=== PATIENT | female | born 1985 | race Caucasian/White ===

== ENCOUNTER 2018-09-12 07:02 | Inpatient (IN) | payer MEDICAID, OTHER ==
[2018-09-12] MEDS ORDERED: Sodium Chloride 0.9% 1,000 ML IV ONE (07:34)
[2018-09-12 07:57] LABS: HEMATOCRIT 42.6 % (41.0-60); HEMOGLOBIN 14.1 gm/dL (12-16); MEAN CELL VOLUME 88.3 fl (81-100); MEAN CORPUSCULAR HEMOGLOBIN 29.2 pg (27.0-31.0); MEAN CORPUSCULAR HGB CONC 33.1 pg (28.0-36.0); MEAN PLATELET VOLUME 7.6 fl; PLATELET COUNT 495 Th/cmm (150-400); RED BLOOD COUNT 4.82 Mil/cmm (3.80-5.10); RED CELL DISTRIBUTION WIDTH 12.4 % (11.5-20.0)
[2018-09-12 08:03] LABS: WHITE BLOOD COUNT 18.1 Th/cmm (4.8-10.8)
[2018-09-12 08:15] LABS: BAND NEUTROPHILE 3 % (0-10); BASOPHIL 0 % (0-3); EOSINOPHIL 0 % (0-5); LYMPHOCYTE 15 % (20-50); MONOCYTE 1 % (2-10); NEUTROPHILS 81 % (40-80)
[2018-09-12 08:25] LABS: ALB/GLOB RATIO 1.5 (1.0-1.8); ALKALINE PHOSPHATASE 84 U/L (34-104); AMYLASE SERUM 19 U/L (29-103); ANION GAP 14.7 (7.0-16.0); BUN - UREA NITROGEN 14 mg/dL (7-25); CALCIUM SERUM 9.3 mg/dL (8.6-10.3); CARBON DIOXIDE 21.6 mEq/L (21.0-31.0); CHLORIDE 104 mEq/L (98-107); CREATININE - SERUM 0.6 mg/dL (0.6-1.2); GFR AFRICAN-AMERICAN > 60.0 ml/min (>90); GFR NON AFRICAN-AMERICAN > 60.0 ml/min; GLUCOSE 151 mg/dL (70-105); LIPASE 9 U/L (11-82); POTASSIUM SERUM 3.3 mEq/L (3.5-5.1); SGOT 13 U/L (13-39); SGPT/ALT 14 U/L (7-52); SODIUM SERUM 137 mEq/L (136-145); TOTAL PROTEIN,SERUM 6.7 gm/dL (6.0-8.3)
[2018-09-12] MEDS ORDERED: IOHEXOL 300mgI/mL 100 ML VIAL IVP ONE (08:26)
[2018-09-12] MEDS ORDERED: Potassium Chloride 20 mEq ER Tab PO ONE ×2 (08:41→09:18)
--- NOTE | 2018-09-12 08:43 | ED Physician Chart ---
ED Chief Complaint/HPI - Patient Information Date Seen:: 09/12/18 Time Seen:: 07:20 Chief Complaint:: Abdominal Pain History of Present Illness:: onset x 12 hours of intermittent, diffuse, crampy Abdominal Pain, Flank Pain, N/ V/D, fever, and chills; pt denies trauma, H/As, S/T, neck pain, C/P, cough, SOB , A/C, or urinary s/s Allergies:: Allergies Allergy/AdvReac Type Severity Reaction Status Date / Time No Known Allergies Allergy Verified 09/12/18 07:21 Vitals:: Vital Signs - 8 hr 09/12/18 07:21 Temp 97.3 F HR 77 RR 15 BP 115/76 O2 Sat % 100 Historian:: Patient Review:: Nurse's Note Reviewed, Old Chart Reviewed ED Review of Systems - Review of Systems General/Constitutional: Fever, Chills, No weight loss, No weakness, No diaphoresis, No edema, No loss of appetite Skin: No skin lesions, No rash, No bruising Head: No headache, No light-headedness Eyes: No loss of vision, No pain, No diplopia ENT: No earache, No nasal drainage, No sore throat, No tinnitus Neck: No neck pain, No swelling, No thyromegaly, No stiffness, No mass noted Cardio Vascular: No chest pain, No palpitations, No PND, No orthopnea, No edema Pulmonary: No SOB, No cough, No sputum, No wheezing GI: Nausea, Vomiting, Diarrhea, Pain, No melena, No hematochezia, No constipation, No hematemesis G/U: No dysuria, No frequency, No hematuria, No nacturia [employer]: No vaginal discharge, No abnormal vaginal bleed, No contraction Musculoskeletal: No bone or joint pain, No back pain, No muscle pain Endocrine: No polyuria, No polydipsia Psychiatric: No prior psych history, No depression, No anxiety, No suicidal ideation, No homicidal ideation, No auditory hallucination, No visual hallucination Hematopoietic: No bruising, No lymphadenopathy Allergic/Immuno: No urticaria, No angioedema Neurological: No syncope, No focal symptoms, No weakness, No paresthesia, No headache, No seizure, No dizziness, No confusion, No vertigo ED Past Medical History - Past Medical History Obtainable: Yes Past Medical History: No significant medical hx Family History: None Social History: Smoker, Alcohol, Illicit Drug Use, Single Surgical History: other (Cyst Removal Surgery) Psychiatricy History: None Medication: Reviewed Family Medical History - Family Member Mother History Unknown: Yes ED Physical Exam - Physical Examination General/Constitutional: Awake, Well-developed, well-nourished, Alert, No distress, GCS 15, Non-toxic appearing, Ambulatory Head: Atraumatic Eyes: Lids, conjuctiva normal, PERRL, EOMI Skin: Nl inspection, No rash, No skin lesions, No ecchymosis, Well hydrated, No lymphadenopathy ENMT: External ears, nose nl, TM canals nl, Nasal exam nl, Lips, teeth, gums nl , Oropharynx nl, Tonsils nl Neck: Nontender, Full ROM w/o pain, No JVD, No nuchal rigidity, No bruit, No mass, No stridor Respiratory: Nl effort/Exclusion, Clear to Auscultation, No Wheeze/Rhonchi/Rales Cardio Vascular: RRR, No murmur, gallop, rubs, NL S1 S2, Carotid/Femoral/Distal pulses equal bilaterally GI: No tenderness/rebounding/guarding, No organomegaly, No hernia, Normal BS's, Nondistended, No mass/bruits, No McBurney tenderness, Rectum exam nl : No CVA tenderness Extremities: No tenderness or effusion, Full ROM, normal strength in all extremities, No edema, Normal digits & nails Neuro/Psych: Alert/oriented, DTR's symmetric, Normal sensory exam, Normal motor strength, Judgement/insight normal, Mood normal, Normal gait, No focal deficits Misc: Normal back, No paraspinal tenderness ED Labs/Radiology/EKG Results - Lab Results Results: Laboratory Tests 09/12/18 09/12/18 09/12/18 07:40 07:40 07:40 WBC 18.1 H RBC 4.82 Hgb 14.1 Hct 42.6 MCV 88.3 MCH 29.2 MCHC Differential 33.1 RDW 12.4 Plt Count 495 H MPV 7.6 Add Manual Diff YES Band Neutrophils % 3 Neutrophils (Manual) 81 H Lymphocytes 15 L Monocytes 1 L Eosinophils 0 Basophils 0 Sodium 137 Potassium 3.3 L Chloride 104 Carbon Dioxide 21.6 Anion Gap 14.7 BUN 14 Creatinine 0.6 Est GFR ( Amer) > 60.0 Est GFR (Non-Af Amer) > 60.0 BUN/Creatinine Ratio 23.3 Glucose 151 H Calcium 9.3 Total Bilirubin 1.0 AST 13 ALT 14 Alkaline Phosphatase 84 Troponin I < 0.01 L Total Protein 6.7 Albumin 4.0 Globulin 2.7 Albumin/Globulin Ratio 1.5 Amylase 19 L Lipase 9 L Serum , Qual 09/12/18 07:40 WBC RBC Hgb Hct MCV MCH MCHC Differential RDW Plt Count MPV Add Manual Diff Band Neutrophils % Neutrophils (Manual) Lymphocytes Monocytes Eosinophils Basophils Sodium Potassium Chloride Carbon Dioxide Anion Gap BUN Creatinine Est GFR ( Amer) Est GFR (Non-Af Amer) BUN/Creatinine Ratio Glucose Calcium Total Bilirubin AST ALT Alkaline Phosphatase Troponin I Total Protein Albumin Globulin Albumin/Globulin Ratio Amylase Lipase Serum , Qual NEGATIVE Comments:: Reviewed - Radiology Results Comments:: + Right Hydronephrosis; Right Hydroureter; Right UVJ 2mm Stone; + Enteritis; Follicular Cystic Changes - EKG Interpretations EKG Time:: 07:50 Rate & Rhythm: 56; SB Comments:: non-specific st-t changes ED Septic Shock - . Is Septic Shock (SBP<90, OR Lactate>4 mmol\L) present?: No - <6hrs of presentation: Vital Signs: Vital Signs - 8 hr 09/12/18 07:21 Temp 97.3 F HR 77 RR 15 BP 115/76 O2 Sat % 100 ED Reassessment (Disposition) - Reassessment Reassessment Condition:: Improved - Diagnosis Diagnosis:: Abdominal Pain; Flank Pain; Hypokalemia; Leukocytosis; UTI; Hematuria; Substance Abuse; N/V/D; AGE: Sepsis; Pyelonephritis; Bradycardia; Ureterolithiasis; Nephrolithiasis; Hydronephrosis; Hydroureter; Right UVJ Calculus - Aftercare/Follow up Instructions Aftercare/Follow-Up Instructions:: Counseled pt regarding lab results/diagnosis & need follow up, Counseled pt & family regarding lab results/diagnosis & need follow up - Patient Disposition Discharge/Transfer:: Acute Care w/in this hosp Accepting Physician:: Dr. Mckay Time Called:: 914 Time Responded:: 09:15 Admitted to:: Telemetry Spoke to:: Dr. Mckay Admitting Medical Physician:: Dr. Mckay Condition at Disposition:: Stable, Improved
[2018-09-12 09:04] LABS: URINE SOURCE RANDOM
[2018-09-12 09:11] LABS: URINE BILIRUBIN NEGATIVE (NEGATIVE); URINE BLOOD MODERATE (NEGATIVE); URINE GLUCOSE (UA) NEGATIVE (NEGATIVE); URINE KETONE 15 mg/dL (NEGATIVE); URINE LEUKOCYTE ESTERASE NEGATIVE (NEGATIVE); URINE MICROSCOPIC INDICATED? YES; URINE NITRATE NEGATIVE (NEGATIVE); URINE PH 6.5 (4.6 - 8.0); URINE PROTEIN TRACE mg/dL (NEGATIVE)
[2018-09-12 09:33] LABS: URINE CLARITY SLIGHTLY HAZY (CLEAR); URINE COLOR YELLOW
[2018-09-12 09:37] LABS: AMPHETAMINE URINE POSITIVE (NEGATIVE); BARBITURATES URINE NEGATIVE (NEGATIVE); BENZODIAZEPINES QUAL URINE NEGATIVE (NEGATIVE); CANNABINOID THC NEGATIVE (NEGATIVE); COCAINE METABOLITE QUAL URINE NEGATIVE (NEGATIVE); METHADONE URINE NEGATIVE (NEGATIVE); METHAMPHETAMINES QUAL URINE POSITIVE (NEGATIVE); OPIATES (MORPHINE) QUAL. URINE NEGATIVE (NEGATIVE); PHENCYCLIDINE (PCP) URINE NEGATIVE (NEGATIVE); TRICYCLICS (TCA) QUAL. URINE NEGATIVE (NEGATIVE)
--- NOTE | 2018-09-12 09:48 | Diagnostic Imaging Report ---
CT abdomen and pelvis with intravenous contrast Indication: Abdominal pain, rule out appendicitis Comparison: None, Technique: Axial images were obtained from the lung bases to the bilateral proximal femurs with IV contrast. Coronal reconstructions were made. total DLP: 440, CTDI9.0 FINDINGS: The lung bases demonstrate hypoventilatory atelectatic changes. No evidence of focal hepatic, splenic, or pancreatic lesions. No focal adrenal lesions. Subcentimeter low-density lesion of the left kidney is noted to small too characterize. There is moderate right hydronephrosis and right hydroureter. Assessment for stones is limited due to contrast administration, however, there is likely a 2 mm stone of the right UVJ. Bilateral adnexal fullness is noted with cystic changes. There is mild heterogeneous enhancement of the uterus. No evidence of acute appendicitis. Moderate fluid distended loops of small bowel the left hemiabdomen is noted. Moderate stool is noted. No free air or free fluid. The osseous structures demonstrate no acute abnormalities. IMPRESSION: No evidence of acute appendicitis Moderate right hydronephrosis and right hydroureter. Assessment for stones is limited as IV contrast was administered however, there is likely a 2 mm stone at the right UVJ. Please correlate with UA findings. Moderate fluid distended loops of small bowel along left hemiabdomen, nonspecific, however enteritis cannot be excluded. Bilateral adnexal fullness, right greater than left, with follicular cystic changes. Recommend short-term follow-up with ultrasound.
[2018-09-12] MEDS ORDERED: cefTRIAXone 1 GM in Sodium Chloride 0.9% 50 ML IV ONE (09:50)
[2018-09-12 09:52] LABS: URINE BACTERIA FEW /hpf (NONE SEEN); URINE EPITHELIAL CELLS MANY /lpf (FEW); URINE WBC 0-2 /hpf (0-5)
[2018-09-12] MEDS ORDERED: Sodium Chloride 0.9% 250 ML IV ONE (14:40)
[2018-09-12] MEDS ORDERED: Sodium Chloride 0.9% 1,000 ML IV SCH ×2 (16:45→17:00)
[2018-09-12 18:25] VITALS: BP 93/47
[2018-09-12] MEDS ORDERED: Influenza Vaccine (5 yr & older) 0.5 ml Syr IM ONE (18:27)
[2018-09-12] MEDS ORDERED: Pneumococcal Vaccine 0.5 mL Vial IM ONE (18:27)
[2018-09-12] MEDS ORDERED: Piperacillin Sodium/Tazobact 3.375 gm Vial IV ONE (23:14)
[2018-09-13] MEDS ORDERED: Piperacillin Sodium/Tazobact 3.375 gm Vial IV ONE (04:29)
[2018-09-13 07:12] LABS: % BASOPHILS 0.3 % (0.0-2.0); % EOSINOPHILS 1.2 % (0.0-5.0); % LYMPHOCYTES 44.2 % (20.0-50.0); % NEUTROPHILS 49.3 % (40.0-80.0); EOSINOPHILE ABSOLUTE 0.1 Th/cmm (0.1-0.4); HEMOGLOBIN 11.8 gm/dL (12-16); LYMPHOCYTE ABSOLUTE 3.8 Th/cmm (1.5-3.0); MEAN CELL VOLUME 87.4 fl (81-100); MEAN CORPUSCULAR HEMOGLOBIN 29.6 pg (27.0-31.0); MEAN CORPUSCULAR HGB CONC 33.9 pg (28.0-36.0); MEAN PLATELET VOLUME 7.6 fl; MONOCYTE ABSOLUTE 0.4 Th/cmm (0.3-1.0); NEUTROPHILE ABSOLUTE 4.2 Th/cmm (1.8-8.0); PLATELET COUNT 403 Th/cmm (150-400); RED BLOOD COUNT 3.99 Mil/cmm (3.80-5.10); RED CELL DISTRIBUTION WIDTH 12.5 % (11.5-20.0)
[2018-09-13 07:13] LABS: INR 1.02 (0.5-1.4); PROTHROMBIN TIME (TEST) 10.6 SECONDS (9.5-11.5)
[2018-09-13 07:14] LABS: WHITE BLOOD COUNT 8.5 Th/cmm (4.8-10.8)
[2018-09-13 07:15] LABS: HEMATOCRIT 34.9 % (41.0-60)
[2018-09-13 07:21] LABS: ALB/GLOB RATIO 1.4 (1.0-1.8); ALKALINE PHOSPHATASE 62 U/L (34-104); ANION GAP 10.1 (7.0-16.0); BILIRUBIN,TOTAL 0.9 mg/dL (0.3-1.0); BUN - UREA NITROGEN 9 mg/dL (7-25); CALCIUM SERUM 7.9 mg/dL (8.6-10.3); CARBON DIOXIDE 22.4 mEq/L (21.0-31.0); CHLORIDE 111 mEq/L (98-107); CREATININE - SERUM 0.6 mg/dL (0.6-1.2); GFR AFRICAN-AMERICAN > 60.0 ml/min (>90); GFR NON AFRICAN-AMERICAN > 60.0 ml/min; GLUCOSE 96 mg/dL (70-105); POTASSIUM SERUM 3.5 mEq/L (3.5-5.1); SGOT 10 U/L (13-39); SGPT/ALT 10 U/L (7-52); SODIUM SERUM 140 mEq/L (136-145); TOTAL PROTEIN,SERUM 5.1 gm/dL (6.0-8.3)
[2018-09-13] MEDS ORDERED: cefTRIAXone 1 GM in Sodium Chloride 0.9% 50 ML IV SCH (09:00)
--- NOTE | 2018-09-13 09:17 | Diagnostic Imaging Report ---
Portable chest x-ray History: Cough, preoperative Allowing for portable technique the heart size is normal. No focal pulmonary parenchymal processes. No hilar or mediastinal abnormalities. Impression: No acute abnormalities.
--- NOTE | 2018-09-13 11:23 | General Progress Note ---
Subjective - Review of Systems Service Date: 09/13/18 Subjective: I am better. Objective - Results Result Diagrams: 09/13/18 06:06 09/13/18 06:06 Recent Labs: Laboratory Last Values WBC 8.5 Th/cmm (4.8-10.8) D 09/13/18 06:06 RBC 3.99 Mil/cmm (3.80-5.10) 09/13/18 06:06 Hgb 11.8 gm/dL (12-16) L 09/13/18 06:06 Hct 34.9 % (41.0-60) L D 09/13/18 06:06 MCV 87.4 fl (81-100) 09/13/18 06:06 MCH 29.6 pg (27.0-31.0) 09/13/18 06:06 MCHC Differential 33.9 pg (28.0-36.0) 09/13/18 06:06 RDW 12.5 % (11.5-20.0) 09/13/18 06:06 Plt Count 403 Th/cmm (150-400) H 09/13/18 06:06 MPV 7.6 fl 09/13/18 06:06 Add Manual Diff YES 09/12/18 07:40 Neutrophils % 49.3 % (40.0-80.0) 09/13/18 06:06 Band Neutrophils % 3 % (0-10) 09/12/18 07:40 Lymphocytes % 44.2 % (20.0-50.0) 09/13/18 06:06 Monocytes % 5.0 % (2.0-10.0) 09/13/18 06:06 Eosinophils % 1.2 % (0.0-5.0) 09/13/18 06:06 Basophils % 0.3 % (0.0-2.0) 09/13/18 06:06 Neutrophils (Manual) 81 % (40-80) H 09/12/18 07:40 Lymphocytes 15 % (20-50) L 09/12/18 07:40 Monocytes 1 % (2-10) L 09/12/18 07:40 Eosinophils 0 % (0-5) 09/12/18 07:40 Basophils 0 % (0-3) 09/12/18 07:40 PT 10.6 SECONDS (9.5-11.5) 09/13/18 06:06 INR 1.02 (0.5-1.4) 09/13/18 06:06 PTT (Actin FS) 29.7 SECONDS (26.0-38.0) 09/13/18 06:06 Sodium 140 mEq/L (136-145) 09/13/18 06:06 Potassium 3.5 mEq/L (3.5-5.1) 09/13/18 06:06 Chloride 111 mEq/L (98-107) H 09/13/18 06:06 Carbon Dioxide 22.4 mEq/L (21.0-31.0) 09/13/18 06:06 Anion Gap 10.1 (7.0-16.0) 09/13/18 06:06 BUN 9 mg/dL (7-25) 09/13/18 06:06 Creatinine 0.6 mg/dL (0.6-1.2) 09/13/18 06:06 Est GFR ( Amer) > 60.0 ml/min (>90) 09/13/18 06:06 Est GFR (Non-Af Amer) > 60.0 ml/min 09/13/18 06:06 BUN/Creatinine Ratio 15.0 09/13/18 06:06 Glucose 96 mg/dL (70-105) 09/13/18 06:06 Whole Bld Lactic Acid 1.33 mmol/L (0.60-1.99) 09/12/18 08:40 Calcium 7.9 mg/dL (8.6-10.3) L 09/13/18 06:06 Total Bilirubin 0.9 mg/dL (0.3-1.0) 09/13/18 06:06 AST 10 U/L (13-39) L 09/13/18 06:06 ALT 10 U/L (7-52) 09/13/18 06:06 Alkaline Phosphatase 62 U/L (34-104) 09/13/18 06:06 Troponin I < 0.01 ng/mL (0.01-0.05) L 09/12/18 07:40 Total Protein 5.1 gm/dL (6.0-8.3) L 09/13/18 06:06 Albumin 3.0 gm/dL (3.7-5.3) L 09/13/18 06:06 Globulin 2.1 gm/dL 09/13/18 06:06 Albumin/Globulin Ratio 1.4 (1.0-1.8) 09/13/18 06:06 Amylase 19 U/L (29-103) L 09/12/18 07:40 Lipase 9 U/L (11-82) L 09/12/18 07:40 Serum , Qual NEGATIVE (NEGATIVE) 09/12/18 07:40 Urine Source RANDOM 09/12/18 08:40 Urine Color YELLOW 09/12/18 08:40 Urine Clarity SLIGHTLY HAZY (CLEAR) 09/12/18 08:40 Urine pH 6.5 (4.6 - 8.0) 09/12/18 08:40 Ur Specific [place] 1.025 (1.005-1.030) 09/12/18 08:40 Urine Protein TRACE mg/dL (NEGATIVE) 09/12/18 08:40 Urine Glucose (UA) NEGATIVE mg/dL (NEGATIVE) 09/12/18 08:40 Urine Ketones 15 mg/dL (NEGATIVE) H 09/12/18 08:40 Urine Blood MODERATE (NEGATIVE) H 09/12/18 08:40 Urine Nitrate NEGATIVE (NEGATIVE) 09/12/18 08:40 Urine Bilirubin NEGATIVE (NEGATIVE) 09/12/18 08:40 Urine Urobilinogen 1.0 E.U./dL (0.2 - 1.0) 09/12/18 08:40 Ur Leukocyte Esterase NEGATIVE (NEGATIVE) 09/12/18 08:40 Urine RBC 5-10 /hpf (0-5) H 09/12/18 08:40 Urine WBC 0-2 /hpf (0-5) 09/12/18 08:40 Ur Epithelial Cells MANY /lpf (FEW) 09/12/18 08:40 Urine Bacteria FEW /hpf (NONE SEEN) 09/12/18 08:40 Urine Mucus MODERATE /lpf (FEW) 09/12/18 08:40 Urine Opiates Screen NEGATIVE (NEGATIVE) 09/12/18 08:40 Urine Methadone Screen NEGATIVE (NEGATIVE) 09/12/18 08:40 Ur Barbiturates Screen NEGATIVE (NEGATIVE) 09/12/18 08:40 Ur Tricyclics Screen NEGATIVE (NEGATIVE) 09/12/18 08:40 Ur Phencyclidine Scrn NEGATIVE (NEGATIVE) 09/12/18 08:40 Amphetamines Screen POSITIVE (NEGATIVE) H 09/12/18 08:40 U Methamphetamines Scrn POSITIVE (NEGATIVE) H 09/12/18 08:40 U Benzodiazepines Scrn NEGATIVE (NEGATIVE) 09/12/18 08:40 U Cocaine Metab Screen NEGATIVE (NEGATIVE) 09/12/18 08:40 U Cannabinoids Screen NEGATIVE (NEGATIVE) 09/12/18 08:40 - Physical Exam Vitals and I&O: Vital Signs Temp 97.5 F 09/13/18 08:21 Pulse 73 09/13/18 08:21 Resp 18 09/13/18 08:21 BP 88/54 09/13/18 08:21 Pulse Ox 100 09/13/18 08:21 Intake & Output 09/12/18 09/13/18 09/13/18 18:59 06:59 18:59 Intake Total 100 Balance 100 Weight (lbs) 61.235 kg Intake: Intake, IV Amount 100 Piperacillin Sodium/ 100 Tazobact 3.375 gm In Sodium Chloride 0.9% 50 ml @ 100 mls/hr IV [facility]6H [facility] Rx#:[id number] Other: Weight Source Patient stated Active Medications: Current Medications Acetaminophen (Tylenol) 650 mg PO Q6H PRN PRN Reason: Fever > 101 Stop: 11/11/18 22:29 Furosemide (Lasix) 20 mg PO DAILY [facility] Stop: 11/12/18 08:59 Last Admin: 09/13/18 09:12 Dose: Not Given Potassium Chloride 10 meq/ (Sodium Chloride) 1,005 mls @ 150 mls/hr IV .Q6H42M [facility] Stop: 11/12/18 00:00 Last Admin: 09/12/18 23:45 Dose: 150 mls/hr Piperacillin Sod/Tazobactam (Sod 3.375 gm/ Sodium Chloride) 50 mls @ 100 mls/ hr IV Q6H [facility] Stop: 11/11/18 21:59 Last Admin: 09/13/18 09:49 Dose: 100 mls/hr Ketorolac Tromethamine (Toradol) 30 mg IVP Q6H PRN PRN Reason: Pain (Mild) Stop: 09/17/18 11:43 Last Admin: 09/13/18 09:49 Dose: 30 mg Tamsulosin HCl (Flomax) 0.4 mg PO DAILY [facility] Stop: 11/11/18 17:59 Last Admin: 09/13/18 09:13 Dose: Not Given General: Alert, No acute distress HEENT: Atraumatic Cardiovascular: Regular rate Lungs: Clear to auscultation Abdomen: Bowel sounds Extremities: Other (No edema) Neurological: Normal gait Skin: Other (Warm and dry) Psych/Mental Status: Mental status NL Assessment/Plan - Problem List Patient Problems: All Active Problems GENERALIZED ABDOMINAL PAIN/L FLANK PAIN (Acute) - Assessment Assessment: Patient is awake, alert, calm in no acute distress. Patient already seen by Urology and is recommended an stent. Dx: Pyelonephritis, Nephrolithiasis, Hydronephrosis, Stone in UVJ. - Plan Plan: Patient is on IV NS, IV AB, and pain control. Today she will have an stent placement. Will continue to monitor.
[2018-09-13] MEDS ORDERED: fentaNYL Citrate 100 mcg/2mL Vial ONE (12:52)
[2018-09-13] MEDS ORDERED: Propofol **SURGERY USE ONLY** 20 ML IV ONE (12:53)
[2018-09-13] MEDS ORDERED: Neostigmine 10mg/10mL Vial ONE (12:54)
[2018-09-13] MEDS ORDERED: Lactated Ringer 1,000 ML IV ONE (13:00)
[2018-09-13] MEDS ORDERED: SODIUM CHLORIDE IV ONE (13:00)
[2018-09-13] MEDS ORDERED: HETASTARCH IV ONE (13:00)
[2018-09-13] MEDS ORDERED: Lidocaine 2% Gel 5 mL TP ONE (13:00)
--- NOTE | 2018-09-13 13:01 | History & Physical ---
ADMIT DATE: 09/12/2018 CHIEF COMPLAINT: Abdominal pain/flank pain. HISTORY OF PRESENT ILLNESS: A 33-year-old female with no major medical problems who started complaining of intermittent diffuse, crampy abdominal pain with radiation on both sides and flanks, more noticeable on the right side. The pain got progressively worse to the point that the pain radiated to her right leg. She also complained of fevers, mild nausea, but denied any headaches, any chest pain, cough or shortness of breath. Pertinent findings at the ED include a white count of 18.1 and UA showing moderate blood, ketones and rbc's of 5-10. Abdominal and pelvic CT showed no evidence of appendicitis. There was a 2 mm stone at the right UVJ as well as moderate right hydronephrosis and hydroureter. There is also moderate fluid distended loops of small bowel along the left rogelio-abdomen which are nonspecific. The patient has been admitted to the medical/surgical floor and Urology consult has been added to her orders. PAST MEDICAL HISTORY: None. PAST SURGICAL HISTORY: She had small cyst/lipomas removed from her neck area, otherwise negative. FAMILY HISTORY: Noncontributory. SOCIAL HISTORY: She denies any tobacco, ETOH and illicit drug usage. Urine tox was positive for amphetamines. ALLERGIES: NKDA. OUTPATIENT MEDICATIONS: None. REVIEW OF SYSTEMS: GENERAL: Fever, chills and body aches. No recent weight loss. NECK: She reports no neck rigidity. CARDIAC: No chest pain or palpitations. PULMONARY: No cough or phlegm production. GASTROINTESTINAL: Abdominal pain, more pelvic and bilateral flank. Does admit to some nausea, but currently denies any vomiting. She denies any constipation or diarrhea. GENITOURINARY: Please refer to the HPI. She denies any hematuria or any painful urination. NEUROLOGIC: No changes in vision, no headaches, no syncope. PHYSICAL EXAMINATION: VITAL SIGNS: Temperature 97.5, pulse 73, respirations 18, blood pressure 95/57 with sats of 100% on room air. GENERAL: A well-developed, well-nourished, currently asleep, but arousable. She appears to be nontoxic. HEAD AND NECK: Normocephalic, atraumatic. Pupils reactive to light. Extraocular movements are intact. Oropharynx moist and clear. HEART: Regular rate and rhythm without any murmurs. LUNGS: Clear to auscultation bilaterally. ABDOMEN: Soft, supple with diffuse tenderness to palpation, especially in the right side. There is right flank pain noticeable, but no obvious CVA tenderness at this time. EXTREMITIES: Lower extremities: There is no pedal edema. NEUROLOGIC: Grossly intact, nonfocal with cranial nerves 2-12 within normal limits. LABORATORY DATA: White count 18.1, H and H 14/42 with a platelet count of 495, 81% neutrophils. INR 1.02. Potassium 3.3 and glucose 151, otherwise chemistry was within normal limits. Lactic acid level was 1.33. LFTs were within normal limits. Set of troponins was within normal limits. Amylase 19, lipase 9. Serum negative. Urine showed positive for ketones, moderate for blood, 5-10 rbc's. DIAGNOSTIC DATA: Please refer to the HPI. Chest x-ray shows no acute abnormalities. EKG: Sinus rhythm at a rate of 56. ASSESSMENT: 1. Abdominal pain likely secondary to 2 mm right ureterovesical junction calculus. 2. Right-sided hydronephrosis/hydroureter, likely secondary to ureterovesical junction calculus. 3. Possible enteritis per CT results. 4. Leukocytosis. PLAN: The patient has been admitted to the medical/surgical floor for management and care. The patient has been placed on broad spectrum IV antibiotics (Zosyn), has been placed on IV hydration, pain management, and Flomax. She has been pancultured and Urology consult has been placed for further management and care. The patient is clear to undergo fluoroscopy and stent placement later today. JOB# [id number]
[2018-09-13] MEDS ORDERED: IOHEXOL 300mgI/mL 50 ML VIAL ONE (13:10)
--- NOTE | 2018-09-13 16:18 | Operative Report ---
DATE OF SURGERY: 09/13/2018 PREOPERATIVE DIAGNOSES: Right ureteral stone with obstruction, hydronephrosis, and pyelonephritis. POSTOPERATIVE DIAGNOSES: Right ureteral stone with obstruction, hydronephrosis, and pyelonephritis. SURGEON: Festus Mazariegos M.D. PROCEDURE: 1. Cystoscopy, right retrograde pyelogram with injection of contrast and fluoroscopy. 2. Placement of double-J stent, right kidney 6 x 22. ANESTHESIA: General. INDICATIONS: The patient is a young lady with a stone in the right lower ureter, but with obstruction and sepsis, elevated white count and fever. A stent was recommended even though the stone is only 2 mm. FINDINGS: Cystoscopy was unremarkable and normal. Retrograde was also unremarkable except for mild dilation of the ureter. A 6 x 22 stent was placed in the kidney without any difficulty or problems. There was no blood loss or any complication. DESCRIPTION OF PROCEDURE: The patient was brought to the operating room, prepped and draped in the dorsal lithotomy position after general anesthesia was induced. After dilating the meatus, the bladder was entered and examined with the 30 and 70 degree lenses. The right orifice was then cannulated. Contrast was injected under fluoroscopy and a guidewire was passed up into the kidney after confirming the anatomy. The catheter was then exchanged for a 6 x 22 double-J stent, advanced into the renal pelvis with the lower end in the bladder. After satisfactory positioning, the bladder was drained and the procedure completed without any blood loss or complication. JOB# [id number]
--- NOTE | 2018-09-13 17:10 | Operative Report ---
DATE OF Consult 09/13/2018 INDICATIONS: The patient is a 33-year-old who came to the Emergency Room with 12 hours of pain mostly in the right flank and abdominal wall with nausea, vomiting, diarrhea, fever and chills. She has had a similar problem 5 years ago, treated in the Emergency Room, but without any retrieval of stones. No interim history of colic or treatment or followup by Urology. No surgeries so far on the urinary tract. MEDICAL HISTORY: Negative for diabetes, hypertension, heart disease. PAST SURGICAL HISTORY: Cyst removal from the middle part of the chest and a cyst from the armpit. Apparently not malignant. She has had 4 normal vaginal deliveries. No C-sections. HOME MEDICATIONS: None. SOCIAL HISTORY: Positive for tobacco, alcohol, and drug use. ALLERGIES: None. REVIEW OF SYSTEMS: She had fever and chills. No weight loss. Denied headache or seizures. She had no sore throat or vision change. Denied coughing, chest pain or shortness of breath. Abdominal pain, diffuse right-sided, traveling from the back to the front and to the low back. No dysuria or hematuria. Denied any skin rash or joint swelling. PHYSICAL EXAMINATION: GENERAL: On exam, she is awake, alert, oriented, in mild distress. VITAL SIGNS: Temperature 97.9, heart rate 73, blood pressure 92/58. T-max in the hospital last night was 97.9. I recall the nurses calling me about temperature more than 99, but it is not recorded here. The patient has tattoos all over her body. HEAD AND NECK: Normocephalic. Trachea central. Pupils equal and reactive. No jaundice. Thyroid and lymph nodes not palpable. Carotid bruit absent. CHEST: Symmetrical. LUNGS: Clear. No rales or rhonchi. HEART: Sounds normal in sinus rhythm, no murmur. ABDOMEN: Soft, but tender in the right upper quadrant, right lower quadrant and right flank on percussion. No organomegaly, mass, or hernia. EXTREMITIES: No edema or lymphadenopathy. NEUROLOGIC: Nonfocal. Moves all 4 limbs. LABORATORY DATA: White count 18.1 yesterday, today down to 8.5, hemoglobin 11.8, platelets adequate. PT, PTT normal. Sodium 140, potassium 3.5, chloride 111, BUN 9, creatinine 0.6, calcium 7.9. Liver functions unremarkable. Slightly reduced levels if at all. Amylase and lipase also normal. test negative. Urine shows moderate amount of blood and 5-10 red cells. Toxic screen positive for amphetamines and methamphetamines. Blood culture negative so far and CT scan of the abdomen and pelvis showed a 2 mm stone in the right distal ureter with a moderate right hydronephrosis and hydroureter. IMPRESSION: Small distal right ureteral stone treated aggressively with fluids, Flomax and expulsive therapy. However, with the elevated white count and recurrent fevers, I recommended a stent placement to shorten the treatment time and protect the kidneys and prevent sepsis. Stent will also help dilate the ureter, so that the stone can pass more easily after the stent is removed or even before that. She was explained multiple times that the stent needs to be removed within a week or 2 and should not be forgotten in which case, it will cause more injury and damage to the kidney. She understands and agrees with the plan and we will proceed accordingly. [facility]# [id number] ALIYA
[2018-09-14 06:27] LABS: % BASOPHILS 0.7 % (0.0-2.0); % EOSINOPHILS 1.6 % (0.0-5.0); % LYMPHOCYTES 35.2 % (20.0-50.0); % MONOCYTES 4.5 % (2.0-10.0); BASOPHILE ABSOLUTE 0.1 Th/cumm (0-0.2); EOSINOPHILE ABSOLUTE 0.2 Th/cmm (0.1-0.4); HEMATOCRIT 32.3 % (41.0-60); HEMOGLOBIN 10.9 gm/dL (12-16); LYMPHOCYTE ABSOLUTE 3.3 Th/cmm (1.5-3.0); MEAN CELL VOLUME 87.2 fl (81-100); MEAN CORPUSCULAR HEMOGLOBIN 29.4 pg (27.0-31.0); MEAN CORPUSCULAR HGB CONC 33.7 pg (28.0-36.0); MEAN PLATELET VOLUME 7.7 fl; MONOCYTE ABSOLUTE 0.4 Th/cmm (0.3-1.0); NEUTROPHILE ABSOLUTE 5.5 Th/cmm (1.8-8.0); PLATELET COUNT 393 Th/cmm (150-400); RED BLOOD COUNT 3.71 Mil/cmm (3.80-5.10); RED CELL DISTRIBUTION WIDTH 12.8 % (11.5-20.0); WHITE BLOOD COUNT 9.5 Th/cmm (4.8-10.8)
[2018-09-14 06:52] LABS: ALB/GLOB RATIO 1.5 (1.0-1.8); ALKALINE PHOSPHATASE 55 U/L (34-104); ANION GAP 9.4 (7.0-16.0); BILIRUBIN,TOTAL 0.5 mg/dL (0.3-1.0); BUN - UREA NITROGEN 9 mg/dL (7-25); CARBON DIOXIDE 23.5 mEq/L (21.0-31.0); CHLORIDE 109 mEq/L (98-107); CREATININE - SERUM 0.6 mg/dL (0.6-1.2); GFR AFRICAN-AMERICAN > 60.0 ml/min (>90); GFR NON AFRICAN-AMERICAN > 60.0 ml/min; GLUCOSE 109 mg/dL (70-105); MAGNESIUM 1.8 mg/dL (1.9-2.7); POTASSIUM SERUM 3.9 mEq/L (3.5-5.1); SGOT 17 U/L (13-39); SGPT/ALT 20 U/L (7-52); SODIUM SERUM 138 mEq/L (136-145)
--- NOTE | 2018-09-14 08:35 | Discharge Summary ---
General Discharge Summary - Discharge Summary Date of Admission: 09/12/18 Admitting Diagnosis: Pyelonephritis, Nephrolithiasis, Hydronephrosis, Stone in [facility]J, Drug addicti Discharge Date: 09/14/18 Discharge Diagnosis: Pyelonephritis, Nephrolithiasis, Hydronephrosis, Stone in [facility]J, Drug addiction. Laboratory Findings: Laboratory Results - last 24 hr 09/14/18 09/14/18 05:45 05:45 WBC 9.5 RBC 3.71 L Hgb 10.9 L Hct 32.3 L MCV 87.2 MCH 29.4 MCHC Differential 33.7 RDW 12.8 Plt Count 393 MPV 7.7 Neutrophils % 58.0 Lymphocytes % 35.2 Monocytes % 4.5 Eosinophils % 1.6 Basophils % 0.7 Sodium 138 Potassium 3.9 Chloride 109 H Carbon Dioxide 23.5 Anion Gap 9.4 BUN 9 Creatinine 0.6 Est GFR ( Amer) > 60.0 Est GFR (Non-Af Amer) > 60.0 BUN/Creatinine Ratio 15.0 Glucose 109 H Calcium 8.0 L Magnesium 1.8 L Total Bilirubin 0.5 AST 17 ALT 20 Alkaline Phosphatase 55 Total Protein 5.0 L Albumin 3.0 L Globulin 2.0 Albumin/Globulin Ratio 1.5 Hospital Course: Patient responded to treatment, pain was in control. Treatment: Patient was In IV NS, IV AB, Pain control and ureteral stent was placed. Condition at Discharge: Stable Disposition: PT DISCHARGED HOME Home Medications: Home Medication Medication Instructions Recorded Type NK [No Home Meds] 09/12/18 History Inpatient Medications: Current Medications Acetaminophen (Tylenol) 650 mg PO Q6H PRN PRN Reason: Fever > 101 Stop: 11/11/18 22:29 Furosemide (Lasix) 20 mg PO DAILY PENDING SALE TO [facility] Stop: 11/12/18 08:59 Last Admin: 09/13/18 09:12 Dose: Not Given Piperacillin Sod/Tazobactam (Sod 3.375 gm/ Sodium Chloride) 50 mls @ 100 mls/ hr IV Q6H DAVID Stop: 11/11/18 21:59 Last Infusion: 09/14/18 04:36 Dose: Infused Potassium Chloride 10 meq/ (Sodium Chloride) 1,005 mls @ 100 mls/hr IV .Q10H3M PENDING SALE TO [facility] Stop: 11/12/18 19:29 Last Admin: 09/14/18 06:23 Dose: 100 mls/hr Magnesium Sulfate 1 gm/ Sodium (Chloride) 52 mls @ 52 mls/hr IV X1 ONE Stop: 09/14/18 09:21 Ketorolac Tromethamine (Toradol) 30 mg IVP Q6H PRN PRN Reason: Pain (Mild) Stop: 09/17/18 11:43 Last Admin: 09/13/18 23:28 Dose: 30 mg Oxybutynin Chloride (Ditropan) 5 mg PO BID PRN PRN Reason: Abdominal Cramping Stop: 11/12/18 16:59 Tamsulosin HCl (Flomax) 0.4 mg PO DAILY DAVID Stop: 11/11/18 17:59 Last Admin: 09/13/18 09:13 Dose: Not Given Activity: As Tolerated Discharge Diet: Regular Consults and Follow-Up: LORENZO ANNA [Other] Rafa Mckay [Primary Care Provider] - Consulting Speciality: Urology Instructions: Pyelonephritis, Child, Flank Pain, [id number], Cystoscopy, Care After
--- NOTE | 2018-09-14 08:45 | Diagnostic Imaging Report ---
Exam: Fluoroscopic examination right ureter right great pyelogram. HISTORY: Right ureteral stent placement I needs: Fluoroscopic examination or retrograde right-sided pyelogram demonstrates injection of contrast material into the right ureterovesical junction with retrograde opacification of the right kidney pelvicalyceal system. The study demonstrates normal right uterus and normal right pelvicalyceal system. Right ureteral stent is noted. IMPRESSION: placement of right ureteral stent under fluoroscopic guidance.
--- NOTE | 2018-09-15 11:38 | Progress Notes ---
DATE: 09/14/2018 SUBJECTIVE: The patient is doing better after the stent placement and her white count has improved to 9.5. Urine culture came back negative, which is more reassuring and the patient could be discharged with oral antibiotics for another 5 days at the most. I have reminded her multiple times to come back to my office to have the stent removed within a week or two, so that it is not forgotten and does not create sepsis and infection and incrustation. JOB# [id number]
== END 2018-09-14 13:51 | disposition left against medical advice (07) | DRG 710 ==
LOC: ER 07:02 → MSI 11:40 → TELE 09-13 15:07
PROVIDERS: ADMIT General Practice; ATTEND General Practice
PROC: 0T738DZ Dilation of Right Kidney Pelvis with Intraluminal Device, Via Natural or Artificial Opening Endoscopic (ICD-10-PCS; principal; 2018-09-13)
PROC: 0T7B8DZ Dilation of Bladder with Intraluminal Device, Via Natural or Artificial Opening Endoscopic (ICD-10-PCS; 2018-09-13)
PROC: BT1D1ZZ Fluoroscopy of Right Kidney, Ureter and Bladder using Low Osmolar Contrast (ICD-10-PCS; 2018-09-13)
DX: A41.9 Sepsis, unspecified organism (principal); N13.6 Pyonephrosis; F17.210 Nicotine dependence, cigarettes, uncomplicated; E87.6 Hypokalemia; R31.9 Hematuria, unspecified; K52.9 Noninfective gastroenteritis and colitis, unspecified; N21.0 Calculus in bladder; F19.20 Other psychoactive substance dependence, uncomplicated
CPT/HCPCS: 36415-UA; 71045-TC; 76000-TC; 80053-TC; 80307; 81001-TC; 82150-TC; 83605; 83690-TC; 83735-TC; 84484-TC; 84703-TC; 85007-TC; 85025-TC; 85610-TC; 87086-90; 93005; 96372; 96375; J0696; J1885; J2405; J2543; J2704; J2710; J3010; J3475; J3480; J7030; Q9967; V2790; X6258; Z7610